=== PATIENT | male | born 1960 | race Caucasian/White ===

== ENCOUNTER 2017-02-22 04:31 | Outpatient (CLI) | payer BC | END 2017-02-22 04:32 | disposition critical access hospital (66) | DX: M54.9 Dorsalgia, unspecified (principal) | CPT/HCPCS: A0425; A0427 ==

== ENCOUNTER 2017-02-22 05:08 | Emergency (ER) | payer BC ==
[2017-02-22] MEDS ORDERED: HYDROmorphone 1 MG/ML SYRINGE IVP STA (05:49)
[2017-02-22] MEDS ORDERED: HYDROmorphone 1 MG/ML SYRINGE ONE (05:53)
[2017-02-22] MEDS ORDERED: HYDROcod/ACETAM 5/325 MG TABLET PO STA (07:06)
[2017-02-22] MEDS ORDERED: HYDROcod/ACETAM 5/325 MG TABLET ONE ×2 (07:42→07:45)
== END 2017-02-22 08:33 | disposition home or self-care (01) ==
DX: M54.42 Lumbago with sciatica, left side (principal); K21.9 Gastro-esophageal reflux disease without esophagitis
CPT/HCPCS: 36415; 85025; 85651; 86140; 96374; 99283; A9270; J1170

== ENCOUNTER 2018-11-14 02:40 | Emergency (ER) | payer BC ==
--- NOTE | 2018-11-14 03:03 | ED Physician Documentation ---
PD HPI BACK INJURY - Stated complaint Stated Complaint: BACK PAIN - History obtained from History obtained from: Patient - History of Present Illness Location: Both, Lower Type of injury: Twist (he lifted a box yesterday and felt pop and pain in lower spine about L5 area, radiating to both sides.). No: Fall Where injury occurred: Home ( says they are in the process of moving.) Timing - onset: Chronic (has some chronic pain in low back with prior L5/S1 discectomy) Timing - duration: Days (2) Timing - details: Abrupt onset, Still present, Waxing and waning Quality: Similar to prior episodes Worsened by: Moving, Palpating Associated symptoms: Numbness (same area lateral S5 numb ness lateral left thigh). No: Fever, Weakness, Incontinent of urine Contributing factors: Prior back surgery. No: Anticoagulated Recently seen: Not recently seen Review of Systems Constitutional: denies: Fever, Chills, Myalgias Throat: denies: Sore throat Cardiac: denies: Chest pain / pressure, Palpitations Respiratory: denies: Dyspnea, Cough GI: denies: Nausea, Vomiting, Diarrhea Skin: denies: Rash PD PAST MEDICAL HISTORY - Past Medical History Cardiovascular: None Respiratory: None Neuro: None GI: GERD Musculoskeletal: Chronic back pain - Past Surgical History Past Surgical History: Yes Ortho: Spine surgery - Present Medications Home Medications: Ambulatory Orders Medication Instructions Recorded Confirmed Ibuprofen 600 mg PO TID PRN 12/07/13 12/07/13 HYDROcod/ACETAM 5/325 [[place] 5/325] 1 - 2 ea PO Q6H PRN #15 tablet 02/22/17 Omeprazole [PriLOSEC] 20 mg PO DAILY 02/22/17 02/22/17 Dexamethasone [Decadron] 4 mg PO DAILY #5 tablet 11/14/18 HYDROcodone/ACET 7.5/325 [[place] 1 each PO Q4-6H PRN #25 tablet 11/14/18 7.5/325] Methocarbamol [Robaxin] 500 mg PO Q6H PRN #30 tablet 11/14/18 Naproxen 375 mg PO BID #20 tablet 11/14/18 - Allergies Allergies/Adverse Reactions: Allergies Allergy/AdvReac Type Severity Reaction Status Date / Time No Known Drug Allergies Allergy Unverified 02/22/17 05:12 - Social History Does the pt smoke?: No Smoking Status: Never smoker Does the pt drink ETOH?: No Does the pt have substance abuse?: No - Immunizations Immunizations are current?: Yes Immunizations: TDAP >10years/unknown - POLST Patient has POLST: No PD ED PE NORMAL - Vitals Vital signs reviewed: Yes - General General: Alert and oriented X 3, Well developed/nourished, Other (appears uncomfortable, with guarded/straight ROM for low back. ) - Cardiac Cardiac: RRR, No murmur - Respiratory Respiratory: Clear bilaterally - Abdomen Abdomen: Soft, Non tender - Back Back: Other (tender L5 area, mostly to the right. No noted deformity. ) - Derm Derm: Normal color, Warm and dry Results - Vitals Vitals: Vital Signs - 24 hr 11/14/18 11/14/18 02:46 04:52 Temperature 36.5 C Heart Rate 73 97 Respiratory 18 Rate Blood Pressure 162/98 H 135/87 H O2 Saturation 98 100 Oxygen O2 Source Room air PD MEDICAL DECISION MAKING - ED course Complexity details: re-evaluated patient (pain improved reasonably and he feels able to be dicharged.), considered differential (history of low back pain and prior disc surgery several years ago, with abrupt worsening of pain. No red flags per se. Will give meds and discharge. ), d/w patient Departure - Departure Disposition: 01 Home, Self Care Clinical Impression: Acute low back pain Qualifiers: Back pain laterality: bilateral Sciatica presence: with sciatica Sciatica laterality: sciatica laterality unspecified Qualified Code(s): M54.40 - Lumbago with sciatica, unspecified side Condition: Stable Record reviewed to determine appropriate education?: Yes Instructions: ED Low Back Pain Injury, ED Sciatica Follow-Up: EVER BEAN MD [Primary Care Provider] - Kai Prajapati MD [Physician No Access] - Prescriptions: Dexamethasone [Decadron] 4 mg PO DAILY #5 tablet HYDROcodone/ACET 7.5/325 [[place] 7.5/325] 1 each PO Q4-6H PRN #25 tablet PRN Reason: Pain Methocarbamol [Robaxin] 500 mg PO Q6H PRN #30 tablet PRN Reason: Spasms Naproxen 375 mg PO BID #20 tablet Comments: Heat to the area to improve mobility and reduce spasming. Drink lots of fluids. Decadron steroid anti-inflammatory daily for 5 more days. Naproxen nonsteroidal anti-inflammatory twice daily with food. Robaxin muscle relaxant for spasms. Add Tylenol or hydrocodone if needed for pains. Follow-up with your back specialist if not improved over the next several days or so. Discharge Date/Time: 11/14/18 04:53
[2018-11-14] MEDS ORDERED: KETOROLAC 30 MG/ML VIAL IM STA (03:14)
[2018-11-14] MEDS ORDERED: METHOCARBAMOL 500 MG TABLET PO STA (03:14)
[2018-11-14] MEDS ORDERED: DEXAMETHASONE 10 MG/ML VIAL PO STA (03:14)
[2018-11-14] MEDS ORDERED: HYDROmorphone 2 MG/ML VIAL IM STA (03:14)
[2018-11-14] MEDS ORDERED: HYDROmorphone 1 MG/ML CARPUJECT IM STA (04:18)
[2018-11-14 04:53] VITALS: BP 135/87
== END 2018-11-14 04:53 | disposition home or self-care (01) ==
LOC: ED 02:40
DX: M54.40 Lumbago with sciatica, unspecified side (principal)
CPT/HCPCS: 96372; 99283; A9270; J1170

== ENCOUNTER 2022-07-27 17:58 | Day surgery (SDC) | payer BC ==
[2022-07-27 19:18] LABS: BASOPHILS % (AUTO) 0.4 %; EOSINOPHILS # (AUTO) 0.1 10^3/uL (0.0-0.7); HCT - HEMATOCRIT 49.1 % (42.0-52.0); HGB - HEMOGLOBIN 16.5 g/dL (14.0-18.0); LYMPHOCYTES # (AUTO) 1.2 10^3/uL (1.5-3.5); LYMPHOCYTES % (AUTO) 16.2 %; MEAN CORPUSCULAR HEMOGLOBIN 28.8 pg (27.0-31.0); MEAN CORPUSCULAR HGB CONC 33.6 g/dL (32.0-36.0); MEAN CORPUSCULAR VOLUME 85.8 fL (80.0-94.0); MEAN PLATELET VOLUME 9.6 fL (7.4-11.4); MONOCYTES # (AUTO) 0.5 10^3/uL (0.0-1.0); MONOCYTES % (AUTO) 7.4 %; NEUTROPHILS # (AUTO) 5.5 10^3/uL (1.5-6.6); NEUTROPHILS % (AUTO) 74.9 %; PLT - PLATELET COUNT 271 10^3/uL (130-450); RED BLOOD COUNT 5.72 10^6/uL (4.70-6.10); RED CELL DISTRIBUTION WIDTH 13.2 % (12.0-15.0); WHITE BLOOD COUNT 7.3 x10^3/uL (4.8-10.8)
[2022-07-27 19:42] LABS: CREATININE 1.3 mg/dL (0.6-1.2); POTASSIUM 4.3 mmol/L (3.5-5.0)
[2022-07-27] MEDS ORDERED: diazePAM INJ 5 MG/ML SYRINGE IVP STA (19:46)
[2022-07-27] MEDS ORDERED: GLUCAGON 1 MG/ML VIAL IVP STA (19:46)
--- NOTE | 2022-07-27 20:35 | ED Physician Documentation ---
History of Present Illness - Stated complaint Stated Complaint: OBJECT IN THROAT - Chief complaint Chief Complaint: General - History obtained from History obtained from: Patient - History of Present Illness Timing: Today Pain level max: 0 Pain level now: 0 - Additonal information Additional information: Patient is a 62-year-old male who presents to the emergency department stating he has had a piece of chicken stuck in his throat since about 1430 today. Has a history of same. He has had to have esophageal dilations in the past. He is scheduled to see GI at [facility] in about a month. Has not been able to swallow saliva. Review of Systems Ten Systems: 10 systems reviewed and negative Constitutional: denies: Fever, Chills Nose: denies: Rhinorrhea / runny nose, Congestion GI: denies: Vomiting, Diarrhea Skin: denies: Rash Musculoskeletal: denies: Neck pain, Back pain Neurologic: denies: Headache PD PAST MEDICAL HISTORY - Past Medical History Cardiovascular: None Respiratory: None Neuro: None GI: GERD Musculoskeletal: Chronic back pain - Past Surgical History Past Surgical History: Yes Ortho: Spine surgery - Present Medications Home Medications: Ambulatory Orders Medication Instructions Recorded Confirmed Omeprazole [PriLOSEC] 20 mg PO DAILY 02/22/17 02/22/17 - Allergies Allergies/Adverse Reactions: Allergies Allergy/AdvReac Type Severity Reaction Status Date / Time No Known Drug Allergies Allergy Verified 07/27/22 18:16 - Social History Does the pt smoke?: No Smoking Status: Never smoker Does the pt drink ETOH?: No Does the pt have substance abuse?: No - Immunizations Immunizations are current?: Yes Immunizations: TDAP >10years/unknown - POLST Patient has POLST: No PD ED PE NORMAL - Vitals Vital signs reviewed: Yes - General General: Alert and oriented X 3, No acute distress, Other (Patient is spitting into a bag) - HEENT HEENT: Moist mucous membranes, Pharynx benign - Neck Neck: Supple, no meningeal sign - Cardiac Cardiac: RRR, Strong equal pulses - Respiratory Respiratory: No respiratory distress, Clear bilaterally - Abdomen Abdomen: Soft, Non tender, Non distended - Derm Derm: Warm and dry - Extremities Extremities: No edema - Neuro Neuro: Alert and oriented X 3 - Psych Psych: Normal mood, Normal affect Results - Vitals Vitals: Vital Signs - 24 hr 07/27/22 07/27/22 07/27/22 18:13 20:07 21:00 Temperature 36.6 C Heart Rate 81 88 67 Respiratory 20 20 20 Rate Blood Pressure 159/93 H 152/96 H O2 Saturation 97 98 97 Oxygen O2 Source Room air - Labs Labs: Laboratory Tests 07/27/22 07/27/22 19:12 19:12 WBC 7.3 RBC 5.72 Hgb 16.5 Hct 49.1 MCV 85.8 MCH 28.8 MCHC 33.6 RDW 13.2 Plt Count 271 MPV 9.6 Neut # (Auto) 5.5 Lymph # (Auto) 1.2 L [place] # (Auto) 0.5 Eos # (Auto) 0.1 Baso # (Auto) 0.0 Absolute Nucleated RBC 0.00 Nucleated RBC % 0.0 Sodium 140 Potassium 4.3 Chloride 100 L Carbon Dioxide 27 Anion Gap 13.0 BUN 21 H Creatinine 1.3 H Estimated GFR (MDRD) 56 L Glucose 105 H Calcium 10.0 PD MEDICAL DECISION MAKING - ED course Complexity details: reviewed results, re-evaluated patient, considered differential, d/w patient ED course: Patient is a 62-year-old male with esophageal obstruction secondary to impacted food bolus. Attempted glucagon, IV fluids and a small amount of Valium. Still unable to tolerate p.o. Therefore I contacted general surgery who will take the patient to the OR for endoscopy. This document was made in part using voice recognition software. While efforts are made to proofread this document, sound alike and grammatical errors may occur. Departure - Departure Disposition: ED Transfer to [facility] Clinical Impression: Esophageal obstruction due to food impaction Condition: Stable Discharge Date/Time: 07/27/22 21:51
[2022-07-27] MEDS ORDERED: SODIUM CHLORIDE FLUSH 0.9% 10 ML SYRINGE IVP PRN (20:57)
--- NOTE | 2022-07-27 21:03 | HISTORY & PHYSICAL EXAMINATION ---
HPI - History Obtained From History obtained from: Patient Exam limitations: No limitations - History of Present Illness Pain/Problem Location Description: Inability to swallow secretions Severity at the worst: reports: Moderate HPI Comment/Other: 62 male with history of GERD developed the inability to swallow liquids or his secretions after eating a piece of chicken earlier today (3 pm). He has GERD and over the last several weeks has had progressive difficulty swallowing solids. On occasion, food would get stuck but it always cleared. Today it did not. He has a scheduled appointment with GI in August to assess this swallowing issue. Jian denies chest pain or SOB. He admits to an EGD about 10 years ago and thinks he may have had a dilation at that time. PMH/PSH - Past Medical History Cardiovascular: positive: None Respiratory: positive: None Neuro: positive: None Endocrine/Autoimmune: positive: None GI: positive: GERD : positive: None HEENT: positive: None Psych: positive: None Musculoskeletal: positive: None, Chronic back pain Derm: positive: None MRSA Hx?: No - Past Surgical History Ortho: positive: Hip replacement, Spine surgery Social & Family Hx - Social History Does the pt smoke?: No Smoking Status: Never smoker Does the pt drink ETOH?: No Does the pt have substance abuse?: No - POLST Patient has POLST: No - Family History Family History: Mother: Alive and Well, Father: Alive and Well Meds/Allgy - Home Medications Home Medications: Ambulatory Orders Medication Instructions Recorded Confirmed Omeprazole [PriLOSEC] 20 mg PO DAILY 02/22/17 02/22/17 - Allergies Allergies/Adverse Reactions: Allergies Allergy/AdvReac Type Severity Reaction Status Date / Time No Known Drug Allergies Allergy Verified 07/27/22 18:16 Review of Systems - Gastrointestinal Gastrointestinal: reports: Other (Inability to swallow oral secretions or liquids after eating a piece of chicken at 3 pm today (7 hours ago)) Exam - Vital Signs Vital Signs: Vital Signs x48h Temp Pulse Resp BP Pulse Ox 07/27/22 21:00 67 20 152/96 H 97 07/27/22 20:07 88 20 98 07/27/22 18:13 97.9 F 81 20 159/93 H 97 - Physical Exam General Appearance: positive: Moderate distress, Other (Sitting upright spitting secretions into an emesis pouch) Eyes Bilateral: positive: Normal inspection ENT: positive: ENT inspection nml Neck: positive: Nml inspection Respiratory: positive: Chest non-tender Cardiovascular: positive: Regular rate & rhythm Peripheral Pulses: positive: 2+ Abdomen: positive: Non-tender Skin: positive: Color nml Extremities: positive: Non-tender, Full ROM Neurologic/Psychiatric: positive: Oriented x3 Results - Lab Results Fish Bones: 07/27/22 19:12 07/27/22 19:12 Other Lab Results: Lab Results x24hrs 07/27/22 07/27/22 Range/Units 19:12 19:12 WBC 7.3 (4.8-10.8) x10^3/uL RBC 5.72 (4.70-6.10) 10^6/uL Hgb 16.5 (14.0-18.0) g/dL Hct 49.1 (42.0-52.0) % MCV 85.8 (80.0-94.0) fL MCH 28.8 (27.0-31.0) pg MCHC 33.6 (32.0-36.0) g/dL RDW 13.2 (12.0-15.0) % Plt Count 271 (130-450) 10^3/uL MPV 9.6 (7.4-11.4) fL Neut # (Auto) 5.5 (1.5-6.6) 10^3/uL Lymph # (Auto) 1.2 L (1.5-3.5) 10^3/uL [place] # (Auto) 0.5 (0.0-1.0) 10^3/uL Eos # (Auto) 0.1 (0.0-0.7) 10^3/uL Baso # (Auto) 0.0 (0.0-0.1) 10^3/uL Absolute Nucleated RBC 0.00 x10^3/uL Nucleated RBC % 0.0 /100WBC Sodium 140 (135-145) mmol/L Potassium 4.3 (3.5-5.0) mmol/L Chloride 100 L (101-111) mmol/L Carbon Dioxide 27 (21-32) mmol/L Anion Gap 13.0 (6-13) BUN 21 H (6-20) mg/dL Creatinine 1.3 H (0.6-1.2) mg/dL Estimated GFR (MDRD) 56 L (>89) Glucose 105 H (70-100) mg/dL Calcium 10.0 (8.5-10.3) mg/dL Impression/Plan - Problem List Problem List: Assessment: Meat impaction of distal esophagus. Last EGD 10 years ago. Patient has GERD for which he takes omeprazole. Plan: Esophagoscopy with disimpaction, possible dilation. CONSENT: Jian has been counseled for the procedure, it's indications, risks, benefits and expected outcome as well as alternative therapies. We specifically discussed risks associated with anesthesia, bleeding, infection, injury to surrounding structures which may require additional surgery, and the possible need for conversion to an open procedure. We also discussed the possible need for a blood transfusion with its risks and benefits. Raghavendra was able to repeat to me the reason for the procedure, the known risks and benefits, and alternative therapy. Raghavendra requests that we proceed with the procedure as outlined in our discussion. In my medical opinion, considering (1) the potential harm to the patient's health and well-being, including the risks associated with the patient undergoing a procedure and delaying the procedure during the COVID-19 pandemic, and (2) the health care resources available to the patient in the hospital and the broader community during and after the procedure, I recommend that the patient proceed with the procedure. Jian understands, agrees, and consents to the proposed operative strategy and requests that we proceed with the procedure as outlined in our discussion. Ryan Boyle MD, [facility] General Surgery Service 07/27/2022 [phone]
[2022-07-27] MEDS ORDERED: fentaNYL 100 MCG/2 ML VIAL ONE (21:22)
[2022-07-27] MEDS ORDERED: MIDAZOLAM 2 MG/2 ML VIAL ONE (21:22)
[2022-07-27] MEDS ORDERED: LIDOCAINE-MPF 2% 5 ML VIAL ONE (21:23)
[2022-07-27] MEDS ORDERED: PROPOFOL 200 MG/20 ML VIAL IVP ONE (21:23)
[2022-07-27] MEDS ORDERED: SUCCINYLCHOLINE 200 MG/10 ML VIAL ONE (21:23)
[2022-07-27] MEDS ORDERED: ROCURONIUM 50 MG/5 ML VIAL ONE (21:23)
[2022-07-27] MEDS ORDERED: SUGAMMADEX 200 MG/2 ML VIAL IVP ONE (21:23)
[2022-07-27] MEDS ORDERED: VASOPRESSIN 20 UNIT/ML VIAL ONE (22:09)
[2022-07-27] MEDS ORDERED: GLUCAGON 1 MG/ML VIAL ONE (22:20)
[2022-07-27] MEDS ORDERED: LACTATED RINGERS 1,000 ML IV ONE (23:00)
[2022-07-27] MEDS ORDERED: ATROPINE ABBOJECT 1 MG/10 ML SYRINGE IVP PRN (23:11)
[2022-07-27] MEDS ORDERED: NALOXONE 0.4 MG/ML VIAL IVP PRN (23:11)
[2022-07-27] MEDS ORDERED: MORPHINE 2 MG/ML CARPUJECT IVP PRN (23:11)
[2022-07-27] MEDS ORDERED: ONDANSETRON 4 MG/2 ML VIAL IVP PRN (23:11)
[2022-07-27] MEDS ORDERED: HYDROmorphone 0.5 MG/0.5 ML SYRINGE IVP PRN (23:11)
[2022-07-27] MEDS ORDERED: fentaNYL 100 MCG/2 ML VIAL IVP PRN (23:11)
[2022-07-27] MEDS ORDERED: METOCLOPRAMIDE 10 MG/2 ML VIAL IVP PRN (23:11)
[2022-07-27] MEDS ORDERED: ePHEDrine 50 MG/ML VIAL IVP PRN (23:11)
--- NOTE | 2022-07-27 23:14 | ANESTHESIA ---
Pre-Anesthesia VS, & Labs - Diagnosis food bolus - Procedure EGD Vital Signs: Temp Pulse Resp BP Pulse Ox 36.7 C 85 18 145/81 H 98 07/27/22 23:06 07/27/22 23:06 07/27/22 23:06 07/27/22 23:06 07/27/22 23:06 Height: 6 ft 2 in Weight (kg): 84.822 kg Body Mass Index: 24.0 BMI Classification: Healthy weight - NPO Other (approx 7 hrs) - Lab Results Current Lab Results: Laboratory Tests 07/27/22 19:12: Sodium 140, Potassium 4.3, Chloride 100 L, Carbon Dioxide 27, Anion Gap 13.0, BUN 21 H, Creatinine 1.3 H, Estimated GFR (MDRD) 56 L, Glucose 105 H, Calcium 10.0 07/27/22 19:12: WBC 7.3, RBC 5.72, Hgb 16.5, Hct 49.1, MCV 85.8, MCH 28.8, MCHC 33.6, RDW 13.2, Plt Count 271, MPV 9.6, Neut # (Auto) 5.5, Lymph # (Auto) 1.2 L, [place] # (Auto) 0.5, Eos # (Auto) 0.1, Baso # (Auto) 0.0, Absolute Nucleated RBC 0.00, Nucleated RBC % 0.0 Fish Bones: 07/27/22 19:12 07/27/22 19:12 Home Medications and Allergies Active Medications Sodium Chloride (Sodium Chloride Flush 0.9% 10 Ml Syringe) 10 ml IVP 0100,0900,1700 SURYA Sodium Chloride (Sodium Chloride Flush 0.9% 10 Ml Syringe) 10 ml IVP PRN PRN PRN Reason: NEEDED PER PROVIDER ORDERS Omeprazole [PriLOSEC] 20 mg PO DAILY 02/22/17 Allergies/Adverse Reactions: Allergies Allergy/AdvReac Type Severity Reaction Status Date / Time No Known Drug Allergies Allergy Verified 07/27/22 18:16 Anes History & Medical History - Anesthetic History Anesthesia Complications: reports: No previous complications Family history of Anesthesia Complications: Denies Family history of Malignant Hyperthermia: Denies - Medical History Cardiovascular: reports: None Pulmonary: reports: None Gastrointestinal: reports: GERD Urinary: reports: None Neuro: reports: None Musculoskeletal: reports: Chronic back pain Endocrine/Autoimmune: reports: None Skin: reports: None Smoking Status: Never smoker History of Cancer?: No - Surgical History Orthopedic: reports: Spine surgery Exam General: Alert, Oriented x3, Cooperative Dental: WNL Mouth Openin Fingerbreadth Neck Mobility: Normal Mallampati classification: I Thyromental Distance: 4-6 cm Respiratory: Lungs clear Cardiovascular: Regular rate Plan Anesthesia Type: General Consent for Procedure(s) Verified and Reviewed: Yes Code Status: Attempt Resuscitation ASA classification: 2-Mild systemic disease Is this case an emergency?: Yes
--- NOTE | 2022-07-27 23:21 | OPERATIVE REPORT ---
Operative Report - Other Other Information/Narrative: PROCEDURE DATE: 07/27/22 SURGEON: Ryan Boyle MD, FACS PREOPERATIVE DIAGNOSIS: Walt is a 62-year-old male who has a foreign body impaction of the esophagus due to a meat impaction. POSTOPERATIVE DIAGNOSIS: Meat impaction of the mid-esophagus. NAME OF PROCEDURE: Esophagoscopy, disimpaction of meat obstruction, dilation of esophagus to 48 [place] using sequential Rosenthal dilators ANESTHESIA: GETA DESCRIPTION OF PROCEDURE FOLLOWS: After consent for the procedure was obtained, the patient was brought to the operating room where, in the supine position general endotracheal anesthesia was administered. The patient was placed into the left lateral decubitus position with the head of the bed raised. A Pentax upper endoscope was gently inserted into the esophagus and the examination was begun. A bolus of meat was impacted in the mid-esophagus. The impacted chicken was 5 cm in length and essentially a cast of the esophagus and required multiple instruments to fragment and remove enough of the bolus so that a snare could be place about the bolus and extract it trans-orally along with the endoscope. The endoscope was replaced into the esophagus and further small meat fragmnents were irrigated into the stomach. At this time the esophagus was examinaed and there was no evidence of a mid-esophageal web or stricture causing the obstruction. The mucosa of the proximal, middle and distal third of the esophagus appeared healthy and uninjured. There was no evidence of esophagitis, neoplasms, tumors, ulcers, erosions, varices or Schmitt's. The stomach was entered and insufflated. There was undigested food in the gastric lumen. Retroflex view of the GEJ was normal. The scope was reflexed into its normal position. The stomach was deflated of air. The scope was removed. The patient tolerated this portion of the procedure well. The esophagus was then gently dilated to 46 F using sequential Rosenthal dilators. The endoscope was reinserted into the esophagus and there was no evidence of injury from either the disimpaction or the dilation. The endoscope was removed. The patient was awakened from GETA and brought to the with stable VS. ASSESSMENT: Meat impaction mid esophagus. No clear evidence of a mechanical obstruction. RECOMMENDATION: Continue PPI FU GI in August for continued evaluation and management
--- NOTE | 2022-07-27 23:28 | ANESTHESIA POST OP EVALUATION ---
Anesthesia Post Eval - Post Anesthesia Eval Vitals: Last Vital Signs Temp 36.7 C 07/27/22 23:20 Pulse 87 07/27/22 23:20 Resp 14 07/27/22 23:20 BP 151/86 H 07/27/22 23:20 Pulse Ox 99 07/27/22 23:20 CV Function Including HR & BP: Stable Pain Control: Satisfactory Nausea & Vomiting: Negative Mental Status: Baseline Respiratory Status: Airway Patent Hydration Status: Satisfactory Anesthesia Complications: None
[2022-07-27] MEDS ORDERED: LACTATED RINGERS 1,000 ML IV SCH (23:45)
[2022-07-27 23:59] VITALS: BP 144/81
[2022-07-28] MEDS ORDERED: SODIUM CHLORIDE FLUSH 0.9% 10 ML SYRINGE IVP SCH (01:00)
== END 2022-07-28 00:12 | disposition home or self-care (01) ==
LOC: ED 17:58 → SDS 21:06 → MS2 23:33 → SDS 07-28 00:12
PROVIDERS: ATTEND Surgery
PROC: 0DC28ZZ Extirpation of Matter from Middle Esophagus, Via Natural or Artificial Opening Endoscopic (ICD-10-PCS; principal; 2022-07-27 21:30)
DX: T18.128A Food in esophagus causing other injury, initial encounter (principal); Z20.822 Contact with and (suspected) exposure to COVID-19; K21.9 Gastro-esophageal reflux disease without esophagitis
CPT/HCPCS: 36415; 43247; 43450; 80048; 85025; 87635; 96374; 96375; 99284; 99285; J0330; J7120